=== PATIENT | female | born 1985 | race Hispanic/Latino ===

== ENCOUNTER 2018-07-03 16:16 | Observation (INO) | payer BC ==
[~2018-07-03] VITALS: Ht 160 cm; Wt 90.7 kg
[2018-07-03 16:40] LABS: BASOPHILS % 0.3 % (0.0-1.0); EOSINOPHILS # (AUTO) 0.1 (0.0-0.4); EOSINOPHILS % 1.6 % (0.0-6.0); HEMATOCRIT 39.8 % (34.2-44.1); HEMOGLOBIN 13.3 g/dL (12.0-16.0); LYMPHOCYTES # (AUTO) 3.3 (1.0-3.2); LYMPHOCYTES % 42.4 % (18.0-39.1); MEAN CORPUSCULAR HEMOGLOBIN 27.8 pg (28-32); MEAN CORPUSCULAR HGB CONC 33.4 g/dL (31-35); MEAN CORPUSCULAR VOLUME 83.3 fL (81-99); MONOCYTES # (AUTO) 0.7 (0.2-0.8); MONOCYTES % 9.2 % (4.4-11.3); NEUTROPHILS # (AUTO) 3.6 (2.1-6.9); NEUTROPHILS % 46.2 % (38.7-80.0); PLATELET COUNT 280 x10e3/uL (140-360); RED BLOOD COUNT 4.78 x10e6/uL (3.6-5.1); RED CELL DISTRIBUTION WIDTH 12.9 % (11.7-14.4)
[2018-07-03 16:58] LABS: ALANINE AMINOTRANSFERASE 28 IU/L (0-55); ALBUMIN 3.6 g/dL (3.5-5.0); ALKALINE PHOSPHATASE 89 IU/L (40-150); ANION GAP 11.9 mmol/L (8-16); BLOOD UREA NITROGEN 10 mg/dL (7-26); BUN/CREATININE RATIO 14 (6-25); CALCIUM 9.2 mg/dL (8.4-10.2); CARBON DIOXIDE 24 mmol/L (22-29); CHLORIDE 106 mmol/L (98-107); CREATININE, SERUM 0.72 mg/dL (0.57-1.11); EST GLOMERULAR FILTRATION RATE > 60 ML/MIN (60-); GLUCOSE 108 mg/dL (74-118); POTASSIUM 3.9 mmol/L (3.5-5.1); SODIUM 138 mmol/L (136-145)
[2018-07-03 17:04] LABS: HCG,QUANTITATIVE < 1.20 mIU/mL (0-10)
[2018-07-03] MEDS ORDERED: FAMOTIDINE 20 MG TAB PO ONE (17:30)
[2018-07-03] MEDS ORDERED: DEXAMETHASONE SOD PHOS 10 MG/1 ML VIAL INJ ONE (17:30)
--- NOTE | 2018-07-03 18:17 | Diagnostic Imaging Report ---
PROCEDURE:TRANSVAGINAL ULTRASOUND COMPARISON:None. INDICATIONS:PELVIC PAIN TECHNIQUE: Grayscale transverse and sagittal transabdominal and transvaginal images were obtained of the pelvis. Transvaginal imaging was medically necessary to better visualize the endometrium and ovaries. FINDINGS: UTERUS: The uterus is anteverted and measures 8.5 x 5.1 x 6.2 cm. There are multiple nabothian cysts seen in the cervix, measuring up to 1.5 cm. No uterine masses. ENDOMETRIUM: The endometrium is thickened, measuring up to 1.7 cm. There is a homogenous echotexture without focal thickening. RIGHT OVARY: The right ovary measures 3.5 x 2.0 x 2.5 cm. There is a mildly complex cyst in the right ovary which measures 1.7 x 1.6 x 1.3 cm. LEFT OVARY: The left ovary measures 4.7 x 1.8 x 2.2 cm. No solid or cystic lesions are present in the left ovary. There is a small amount of free fluid within the pelvis. No adnexal masses. Normal vascularity is seen in the right ovary on spectral Doppler images. Due to technical limitations, limited vascularity was seen in the left ovary, but there are otherwise no signs of left ovarian torsion. CONCLUSION: Mild thickening of the endometrial stripe which may be physiologic. Recommend followup ultrasound in 6-12 weeks to ensure resolution. Mildly complex cystic lesion in the right ovary may represent a hemorrhagic cyst. This can be assessed on followup ultrasound. Due to technical issues, limited vascularity was seen in the left ovary, but there are otherwise no signs of left ovarian torsion. Dictated by: Ivan Fatima M.D. on 07/03/2018 at 18:23 Electronically approved by: Ivan Fatima M.D. on 07/03/2018 at 18:23
--- NOTE | 2018-07-03 18:18 | Diagnostic Imaging Report ---
PROCEDURE:PELVIC DOPPLER US COMPARISON:None. INDICATIONS:PELVIC PAIN CONCLUSION: Please refer to separate dictation for transvaginal ultrasound (accession #[id number]) performed at the same date and time for full dictated report. Dictated by: Ivan Fatima M.D. on 07/03/2018 at 18:24 Electronically approved by: Ivan Fatima M.D. on 07/03/2018 at 18:24
[2018-07-03] MEDS ORDERED: MORPHINE SULFATE INJ 4 MG/ML INJ IV PRN (18:45)
[2018-07-03] MEDS ORDERED: MORPHINE SULFATE 2 MG/ML SYR IV PRN (18:45)
--- NOTE | 2018-07-03 19:05 | Diagnostic Imaging Report ---
PROCEDURE: CT ABDOMEN AND PELVIS WITH CONTRAST TECHNIQUE: The abdomen and pelvis were scanned utilizing a multidetector helical scanner from the diaphragm to the lesser trochanter after the IV administration of 100 cc of Isovue 370 and the oral administration of water. Coronal and sagittal multiplanar reformations were obtained. COMPARISON: None. INDICATIONS: LOWER ABDOMINAL PAIN DUE TO OVARIAN CYST FINDINGS: LOWER THORAX: Normal. HEPATOBILIARY: Diffuse hepatic steatosis. No focal hepatic lesions. There has been a cholecystectomy. Mild pneumobilia. SPLEEN: No splenomegaly. PANCREAS: No focal masses or ductal dilatation. ADRENALS: No adrenal nodules. KIDNEYS/URETERS: No hydronephrosis, stones, or solid mass lesions. PELVIC ORGANS/BLADDER: Cystic lesion in the right ovary was also seen on recent ultrasound. The bladder appears unremarkable. PERITONEUM / RETROPERITONEUM: No free air or fluid. LYMPH NODES: No lymphadenopathy. VESSELS: Unremarkable. GI TRACT: No distention or wall thickening. There are scattered sigmoid diverticula without evidence of acute inflammation. The appendix is normal. BONES AND SOFT TISSUES: Very small, fat-containing umbilical hernia. IMPRESSION: 1. Right ovarian cyst, better evaluated on same day pelvic ultrasound. 2. No other findings to explain the patient's symptoms. 3. Cholecystectomy. Pneumobilia may be related to prior biliary instrumentation or history of sphincterotomy. Correlate with history. Dictated by: Ivan Fatima M.D. on 07/03/2018 at 19:11 Electronically approved by: Ivan Fatima M.D. on 07/03/2018 at 19:11
[2018-07-03 19:11] LABS: BILIRUBIN,URINE NEGATIVE (NEGATIVE); CLARITY,URINE CLEAR (CLEAR); COLOR,URINE YELLOW (YELLOW); KETONES,URINE NEGATIVE (NEGATIVE); LEUKOCYTE ESTERASE ,URINE NEGATIVE (NEGATIVE); NITRITE,URINE NEGATIVE (NEGATIVE); PROTEIN,URINE DIPSTICK NEGATIVE (NEGATIVE); URINE UROBILINOGEN 1 mg/dL (0.2 - 1)
[2018-07-03] MEDS: ONDANSETRON HCL INJ 2 MG/ML VIAL IV PRN (19:18)
[2018-07-03 19:19] LABS: BACTERIA,URINE MANY /HPF; EPITHELIAL CELLS,URINE FEW /LPF; MUCUS,URINE FEW (RARE)
[2018-07-03 20:40] VITALS: BP 112/71
[2018-07-03 20:43] VITALS: BP 112/71
[2018-07-03] MEDS ORDERED: ACETAMINOPHEN 325 MG TAB PO PRN (21:15)
[2018-07-03] MEDS: OXYCODONE/ACETAMINOPHEN 5-325 1 EACH TABLET PO PRN (21:32)
[2018-07-03] MEDS ORDERED: SODIUM CHLORIDE 0.9% 50ML 50 ML ONE (22:33)
[2018-07-03] MEDS ORDERED: IOPAMIDOL 370 MG/ML 200 ML INFUS..BTL INJ ONE (22:34)
[2018-07-04] VITALS (9 sets, daily range): BP systolic 95–117; BP diastolic 52–68
[2018-07-04] MEDS: OXYCODONE/ACETAMINOPHEN 5-325 1 EACH TABLET PO PRN ×5 (01:30→21:28)
[2018-07-04] MEDS ORDERED: CITRATE OF MAGNESIA 300ML BOTTLE PO ONE (10:45)
--- NOTE | 2018-07-04 12:06 | Diagnostic Imaging Report ---
EXAM: Limited Pelvic Doppler Ultrasound INDICATION: \S\LEFT OVARIAN BLOOD FLOW COMPARISON: Transvaginal ultrasound 07/03/2018 TECHNIQUE: Grayscale transverse and sagittal transvaginal images with color Doppler were obtained of the ovaries. CLINICAL HISTORY: Check ovarian flow FINDINGS: Right ovary: 4.3 x 3.1 x 3.4 cm. Stable 1.9 x 1.3 x 1.7 cm cystic, anechoic lesion likely representing a dominant follicle and less likely a small follicular cyst. No other focal lesions. Normal arterial and venous flow is documented in the right ovary. Left: 3.5 x 1.8 x 2.0 cm. No focal lesions. Normal arterial and venous flow is documented in the left ovary. IMPRESSION: Normal bilateral arterial and venous flow is documented in the ovaries. Low likelihood of torsion. Signed by: Dr. Tomer Marin M.D. on 07/04/2018 12:02 PM
[2018-07-04] MEDS: ONDANSETRON HCL INJ 2 MG/ML VIAL IV PRN (13:35)
--- NOTE | 2018-07-04 23:05 | Consultation ---
DATE OF CONSULTATION: July 04, 2018 GYNECOLOGIC CONSULTATION REASON FOR CONSULTATION: The patient is a 32-year-old 6, para 3-0-3-3, with last menstrual period at the end of May 2018, on no contraception, with previous menstrual period in February 2018, history of irregular periods, who was admitted to the hospital with abdominal pain. The pain was on the left side, worsening over approximately 4 days with back and left lower quadrant pain. She denies any urinary symptoms or nausea, vomiting or diarrhea, but her last bowel movement was 3 days ago. She was seen in the urgent care center, was admitted to [facility]. She was seen by several doctors but was awaiting gynecology consult and left against medical advice because the slide fasteners inspector did not come after 48 hours. The patient states the pain has made it difficult for her to work. PAST MEDICAL HISTORY: Remarkable for asthma, anxiety, depression, gastritis, diverticulosis and migraines. PAST SURGICAL HISTORY: Remarkable for 2 C-sections and a laparoscopic cholecystectomy in 2001, a D\T\C in 2002, and she had a sphincterotomy presumed in December of 2017. 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 She says the surgery was done by Dr. Linda. I strongly recommended her to call Dr. Linda's office and to get a pathology report to make sure that this neoplasm was not a worrisome tumor. MEDICATIONS: The patient is on no meds at home, but she has been getting medication for pain. At [place] she was given Percocet and morphine. ALLERGIES: ONLY FOR TORADOL, FROM WHICH SHE GETS HIVES. SHE HAS BEEN ABLE TO TOLERATE MOTRIN WITHOUT PROBLEMS. OB HISTORY: Remarkable for 1 normal spontaneous vaginal delivery followed by 2 C-sections. FAMILY HISTORY: Remarkable for the paternal grandmother with ovarian cancer at age 62, maternal grandfather with lung cancer and maternal grandmother from diabetes and paternal grandfather with lung cancer. Both her grandfather's were smokers. 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 She is a nonsmoker, denies alcohol or IV drug abuse. REVIEW OF SYSTEMS: Remarkable only for the abdominal pain. PHYSICAL EXAMINATION VITAL SIGNS: Patient's temperature is 97.9, pulse 70, respirations 18, blood pressure 101/55. LUNGS: Clear. CARDIOVASCULAR: There is regular rate and rhythm. ABDOMEN: There are normal bowel sounds, mild to moderate left lower quadrant tenderness, no rebound. PELVIC: Vulva within normal limits. Vagina normal rugation. Cervix is parous without lesions. Uterus is 6 week size, anteverted, with no cervical motion tenderness. There was mild to moderate uterine tenderness. Adnexa: Right nontender, no masses, left was mild to moderately tender with no palpable masses. Ultrasound revealed uterus measuring 8.5 x 6.2 x 5.1 cm with nabothian cysts. There were no uterine masses. The right ovary contained a 1.7 x 1.6 x 1.3 cm cyst, and the entire right ovary measured 3.5 x 2.5 x 2.0 cm. The cyst was mildly complex, suggestive of a hemorrhagic cyst. The left ovary was 4.7 x 2.2 x 1.8 cm. There were no cysts or masses in the left ovary. There was a small amount of free fluid within the pelvis. No adnexal masses. Normal vascularity was seen in the right ovary. Due to technical limitations, limited vascularity was seen in the left ovary, but there were no signs of torsion otherwise. There was also some mild thickening of the endometrial stripe which may be physiologic in view of the patient's last period being a month ago and with the endometrium being 1.7 cm thick with homogeneous echo texture. A CT revealed a right ovarian cyst, normal appendix, fatty liver and diverticulosis without any signs of inflammation or infection. Laboratory values: White count 7.2, hemoglobin 13.3, hematocrit 39.8, platelets 280,000. Sodium 138, potassium 3.9, glucose 108, creatinine 0.72. hCG was negative. Liver functions were normal. Urinalysis was negative. IMPRESSION: Left lower quadrant pain which could be due to ruptured ovarian cyst, just as likely could be from diverticulosis or maybe from constipation due to the narcotics that the patient has received in the last couple of days. Also, the patient had likely sphincterotomy for retained stone 6 months ago, but pathology report is needed because the patient recalls neoplasm of the bile duct being removed. PLAN: I have discussed the case with Dr. Haynes. I recommend that, in view of her normal ultrasound, a ruptured cyst is possible in the differential diagnosis but constipation from narcotics on top of diverticulosis could also be her problem. It is also possible that adhesions are contributing to her pain. After discussions with Dr. Haynes, he has agreed to get a GI consult. He has also ordered medication to cause her to have a bowel movement, and we will observe to see if this helps relieve her pain. Thank you very much for the consult. Job#: [id number] EV
--- NOTE | 2018-07-05 00:36 | Consultation ---
DATE OF CONSULTATION: GASTROENTEROLOGY CONSULTATION REASON FOR CONSULTATION: Abdominal pain. HISTORY OF PRESENT ILLNESS: The patient is a very pleasant 52-year-old woman who comes in with lower abdominal pain. It is primarily in the pelvic region. It is associated with constipation. She has also taken magnesium citrate, defecated and feels better. She does have ovarian cyst which is under evaluation. Aside from the constipation which may be related to narcotics, she has no other bowel changes. She had a smear of blood on the toilet paper a couple of days ago, however, no further bleeding. There is no blood mixed in her stool. She has had no melena. She has no upper abdominal pain. She has not been losing weight. Otherwise, no fever, chills or sweats. PAST MEDICAL HISTORY: REVIEWED MEDICATIONS AND ALLERGIES: REVIEWED. PLEASE SEE MAR MEDICATION RECONCILIATION FORM. SOCIAL HISTORY: Denies alcohol, tobacco or illicit substance use. She has good family support. FAMILY HISTORY: Reviewed, noncontributory. REVIEW OF SYSTEMS: Ten-system review is positive for that mentioned in HPI, otherwise unremarkable. PHYSICAL EXAMINATION GENERAL: She is pleasant, alert, oriented, no acute distress. HEENT: Pupils equal, round reactive to light. NECK: Supple. LUNGS: Clear. CARDIOVASCULAR: S1 and S2. ABDOMEN: Soft. She is tender in the lower abdomen. No rebound, guarding or mass. EXTREMITIES: No clubbing, cyanosis or edema. PSYCH: Calm and cooperative. NEUROLOGIC: Nonfocal. HEME/ONC: No bruising or adenopathy. The electronic health records reviewed for laboratory and radiologic studies as well as history. Additionally, I reviewed her outpatient charts from [facility] with Dr. Linda. ASSESSMENT 1. Lower abdominal pain. Likely related to constipation and ovarian cystic. I think it is unlikely that she has diverticulitis. She does have a history diverticulosis and should follow a low balance diet which is high fiber and adequate hydration. She can take Colace and MiraLAX for constipation. She will follow up with Dr. Linda for outpatient colonoscopy. 2. Pneumobilia: She has a history of choledocholithiasis. Records from [facility] including the magnetic resonance cholangiopancreatography and endoscopic retrograde cholangiopancreatography are noted. The magnetic resonance cholangiopancreatography noted a distal common bile duct filling defect, stone versus neoplasm. Endoscopic retrograde cholangiopancreatography confirmed stone. There was no concern at that time for any neoplastic process and no brushing for biopsies were taken as the stone was removed and resultant imaging revealed no further filling defect after stone removal. I do not anticipate any future biliary problems for her. Thank you very much for asking me to see Ms. Villaseñor. Any questions or concerns, please do not hesitate to contact me. Job#: [id number]
[2018-07-05 05:00] VITALS: BP 100/50
[2018-07-05] MEDS: OXYCODONE/ACETAMINOPHEN 5-325 1 EACH TABLET PO PRN (05:58)
[2018-07-05 08:04] VITALS: BP 115/58
[2018-07-05] MEDS ORDERED: LIDOCAINE 5% PATCH TP SCH (09:00)
[2018-07-05] MEDS ORDERED: IBUPROFEN 400 MG TAB PO STA (09:34)
[2018-07-05] MEDS ORDERED: ACETAMINOPHEN 325 MG TAB PO NR (10:00)
--- NOTE | 2018-07-05 15:10 | Discharge Summary ---
PRIMARY CARE PHYSICIAN: Dr. Brianna Lombardo. FINAL DIAGNOSIS: Abdominal pain of unclear etiology. SECONDARY DIAGNOSES 1. Ovarian cyst on the right. 2. Diverticulosis. 3. Constipation. 4. Previous retained common bile duct stone, status post sphincterotomy about 6 months ago. 5. A very small fat-containing umbilical hernia. CONSULTANTS: 1. Dr. Guo, GI. 2. Dr. Woo, VICE PRESIDENT SALES. PROCEDURES/STUDIES PERFORMED: CT of the abdomen and pelvis and pelvic ultrasound. HISTORY: Per H\T\P. HOSPITAL COURSE: After magnesium citrate and having a bowel movement her pain got better, but not completely resolved. At this time, etiology is unclear. Potentially, there could be a component of inflammatory bowel given presence of diverticulosis at a young age. We are also entertaining polycystic ovarian syndrome as well. She also has what appears to be left back musculoskeletal pain, which is helped by Lidocaine patch. At this time, the patient is stable for discharge. She will follow up with Dr. Linda, her GI doctor, for colonoscopy and also Dr. Woo. The patient was seen and examined today. CONDITION ON DISCHARGE: Stable. DISCHARGE MEDICATIONS: Please see medication reconciliation form. RADHA CURRY M.D. Job#: [id number] GH cc:BRIANNA LOMBARDO MD
== END 2018-07-05 11:02 | disposition home or self-care (01) ==
LOC: ER 16:16 → ERHOLD 19:49 → IMCU 20:20
PROVIDERS: ADMIT Internal Medicine; ATTEND Internal Medicine
DX: R10.2 Pelvic and perineal pain (principal); N83.201 Unspecified ovarian cyst, right side; K57.30 Diverticulosis of large intestine without perforation or abscess without bleeding; K59.00 Constipation, unspecified; K42.9 Umbilical hernia without obstruction or gangrene; K83.8 Other specified diseases of biliary tract; M54.9 Dorsalgia, unspecified
CPT/HCPCS: 36415; 74177; 76830; 80053; 81001; 83036; 84702; 85025; 93976 ×2; 99284; G0378 ×3; J2270; J2405 ×2; Q9967

== ENCOUNTER 2018-08-19 05:11 | Observation (INO) | payer BC ==
[2018-08-16 14:30] LABS: BASOPHILS % 0.3 % (0.0-1.0); EOSINOPHILS # (AUTO) 0.1 (0.0-0.4); EOSINOPHILS % 1.6 % (0.0-6.0); HEMATOCRIT 40.8 % (34.2-44.1); HEMOGLOBIN 13.2 g/dL (12.0-16.0); LYMPHOCYTES # (AUTO) 3.5 (1.0-3.2); LYMPHOCYTES % 45.4 % (18.0-39.1); MEAN CORPUSCULAR HEMOGLOBIN 27.4 pg (28-32); MEAN CORPUSCULAR HGB CONC 32.4 g/dL (31-35); MEAN CORPUSCULAR VOLUME 84.6 fL (81-99); MONOCYTES # (AUTO) 0.7 (0.2-0.8); MONOCYTES % 8.4 % (4.4-11.3); NEUTROPHILS # (AUTO) 3.4 (2.1-6.9); PLATELET COUNT 308 x10e3/uL (140-360); RED BLOOD COUNT 4.82 x10e6/uL (3.6-5.1); RED CELL DISTRIBUTION WIDTH 12.5 % (11.7-14.4)
[2018-08-16 15:11] LABS: ALANINE AMINOTRANSFERASE 28 IU/L (0-55); ALBUMIN 3.8 g/dL (3.5-5.0); ALKALINE PHOSPHATASE 101 IU/L (40-150); ANION GAP 14.2 mmol/L (8-16); BLOOD UREA NITROGEN 9 mg/dL (7-26); BUN/CREATININE RATIO 13 (6-25); CALCIUM 8.7 mg/dL (8.4-10.2); CARBON DIOXIDE 25 mmol/L (22-29); CHLORIDE 104 mmol/L (98-107); EST GLOMERULAR FILTRATION RATE > 60 ML/MIN (60-); GLUCOSE 87 mg/dL (74-118); POTASSIUM 4.2 mmol/L (3.5-5.1); SODIUM 139 mmol/L (136-145)
--- NOTE | 2018-08-16 15:26 | Diagnostic Imaging Report ---
EXAMINATION: CHEST 2 VIEWS INDICATION: \S\PRE OP \S\[id number] \S\1410 \S\DR ORDERS COMPARISON: None FINDINGS: PA and lateral views TUBES and LINES: None. LUNGS: Lungs are well inflated. Lungs are clear. There is no evidence of pneumonia or pulmonary edema. PLEURA: No pleural effusion or pneumothorax. HEART AND MEDIASTINUM: The cardiomediastinal silhouette is unremarkable. BONES AND SOFT TISSUES: No acute osseous lesion. Soft tissues are unremarkable. UPPER ABDOMEN: No free air under the diaphragm. Right upper quadrant cholecystectomy clips. IMPRESSION: No acute thoracic abnormality. Signed by: Dr. Shonna Chung M.D. on 08/16/2018 3:22 PM
[~2018-08-19] VITALS: Ht 160 cm; Wt 93.9 kg
[~2018-08-19 05:11] MED LIST: BUPROPION XL300 MG PO; MULTI-VITAMIN1 EACH PO; VASOPRESSIN INJ 20 UNIT/ML VIAL ONE; VYVANSE20 MG PO; XANAX0.5 MG PO
[2018-08-19] MEDS ORDERED: CEFAZOLIN SOD 2 GM/D5W 50ML 50 ML IV ONE (05:24)
[2018-08-19] MEDS ORDERED: KLONOPIN0.5 MG PO (05:34)
[2018-08-19] MEDS ORDERED: ESTROGENS CONJUGATED VAGINAL CR 45 GM TUBE PV ONE (07:27)
[2018-08-19] MEDS ORDERED: BUPIVACAINE 0.25%/EPI 30ML SDV INJ ONE (07:27)
[2018-08-19] MEDS ORDERED: DOCUSATE SODIUM 100 MG CAP PO PRN (11:15)
[2018-08-19] MEDS ORDERED: MORPHINE SULFATE 2 MG/ML SYR IM PRN (11:15)
[2018-08-19] MEDS ORDERED: BISACODYL 10 MG SUPP PR PRN (11:15)
[2018-08-19] MEDS ORDERED: MEPERIDINE HCL INJ 50 MG/ML INJ ONE (11:25)
[2018-08-19] MEDS ORDERED: FENTANYL CITRATE/PF 100MCG/2 ML INJ ONE ×2 (11:25→17:34)
[2018-08-19] MEDS ORDERED: MORPHINE SULFATE INJ 10 MG/ML IM PRN ×2 (11:45→15:45)
[2018-08-19] MEDS ORDERED: HYDROMORPHONE 2MG/ML 2 MG/ML ML ONE (11:47)
[2018-08-19 12:45] VITALS: BP 130/76
[2018-08-19 13:15] VITALS: BP 130/76
[2018-08-19 13:16] VITALS: BP 130/76
[2018-08-19 13:20] VITALS: BP 130/76
[2018-08-19] MEDS ORDERED: CEFAZOLIN SOD 1 GM/D5W 50ML 50 ML IV SCH (14:00)
--- NOTE | 2018-08-19 14:09 | Operative Report ---
DATE OF PROCEDURE: August 19, 2018 PREOPERATIVE DIAGNOSES 1. Abdominopelvic pain. 2. Dysmenorrhea. 3. Dyspareunia. 4. Failed medical therapy. POSTOPERATIVE DIAGNOSES 1. Abdominopelvic pain. 2. Dysmenorrhea. 3. Dyspareunia. 4. Failed medical therapy. 5. Adhesions of omentum to anterior abdominal wall. OPERATIONS PERFORMED 1. Laparoscopically assisted vaginal hysterectomy. 2. Bilateral salpingo-oophorectomy. 3. Lysis of adhesions. ANESTHESIA: General with Dr. Hart. INDICATIONS FOR THE OPERATION: The patient is a 33-year-old 6, para 3-0-3-3, with last menstrual period August 08, 2018, status post tubal ligation in 2012, with a 5-year history of lower abdominal pain occurring before, during and after menses. It is usually worse the week before her menses. She is now in pain for 2 straight weeks. She has tried oral contraceptives without any relief of her pain. She requests hysterectomy and bilateral salpingo-oophorectomy. She understands it may not relieve her pain. She also understands the risk for menopause of removing her ovaries, but she does not want to undergo repeated procedures. She is therefore taken to the operating room at this time for LAVH and BSO. FINDINGS AT SURGERY: There was an enlarged uterus 8 week size which was mostly mobile. There were adhesions of omentum to anterior abdominal wall. Tubes were status post tubal ligation. The ovaries were within normal limits. There were adhesions of the bladder to the uterus at the site of her , which were easily lysed, and the massive adhesions of omentum to anterior abdominal wall were lysed before the hysterectomy could be done. PROCEDURE: The patient was taken to the operating room and placed on the table in the supine position. General anesthesia was administered. The patient was placed in the lithotomy position. The perineum was prepared and draped in the usual sterile manner as was the abdomen. Pelvic exam revealed a 6 to 8 week sized, anteverted uterus, mostly mobile, with no adnexal masses. A Mayorga catheter was placed in the bladder for constant drainage. A weighted speculum was placed in the posterior vaginal wall, and then with the aid of a right-angle retractor, the anterior lip of the cervix was grasped with a single-toothed tenaculum. Then a VCare uterine manipulator was put into the endocervical canal after dilation with Castro dilators, and the balloon was blown up to 8 mL of air, and at this point the print machine operator changed gloves and we proceeded with laparoscopy. A small incision was made just inferior to the umbilicus in the midline. The Veress needle was inserted through the incision into the peritoneal cavity. A pneumoperitoneum was created by insufflation of 4 liters of carbon dioxide gas under a filling pressure of 8 to 10 mmHg. The Veress needle was removed, and the trocar was inserted through the incision into the peritoneal cavity. The laparoscope was placed with confirmation that the peritoneal cavity had been entered. A second trocar was placed in the left lower quadrant under direct visualization by laparoscopy, and a third trocar was placed in the right lower quadrant under direct visualization by laparoscopy. Findings were adhesions of omentum to the anterior abdominal wall. Dr. Oj Gaitan was called in for a consultation. He did not scrub in, but he just recommended lysing the adhesions and that there was no intervening bowel. So, the LigaSure was then placed over the adhesions right next to the anterior abdominal wall, and these adhesions were coagulated and cut in sequence until the entire omentum was free of the anterior abdominal wall. Once this was done, we inspected the uterus. It was enlarged to about 8 week size. There were adhesions of bladder to the uterus at the site of previous , but these did not seem to be dense. The tubes were status post tubal ligation. The ovaries were in general normal appearance. There was also a question of adhesions of bowel to the left lateral side wall. Dr. Gaitan stated that these adhesions were normal finding on most cases, that there are typical adhesions of the bowel to that left side. At this point attention was turned to the right infundibulopelvic ligament. It was grasped with the LigaSure, clamped, coagulated and cut. There was good hemostasis in evidence of the ovarian vessels, and this clamping took place as close to the ovary as possible. Then the mesosalpinx was clamped, coagulated and cut, and then the round ligament was coagulated and cut and then the broad ligament was clamped and cut using the LigaSure instrument, coming all the way clamping and cutting down to just above the uterine vessels. Then the anterior peritoneum was opened from round ligament to the round ligament on the other side using blunt dissection, and then attention was turned to the left adnexa. The left tube was grasped, and the infundibulopelvic ligament was identified. The LigaSure was placed over this, coagulating and cutting. There was good hemostasis in evidence of the ovarian vessels. Then the round ligament on the left side was clamped with the LigaSure, coagulated and cut, and then the mesosalpinx on the left was coagulated and cut and then the broad ligament on the left side was coagulated and cut down to the level of the uterine vessels, and the anterior peritoneum was completely opened on the left side as well. At this point a small amount of dissection was made of the bladder away from the uterus, and with good hemostasis in evidence we decided to proceed with the vaginal portion of the procedure. The pneumoperitoneum was removed. The patient was placed in lithotomy position, and we proceeded with the vaginal portion of the procedure. The VCare was removed, and then the uterus was grasped with 2 single-toothed tenacula. Then the dilute Pitressin was injected around the cervix, and then the cervix was circumscribed with a knife and the endopelvic fascia was advanced anteriorly, posteriorly and laterally. The uterosacral ligaments on each side were clamped, cut and tied off with 0 Vicryl suture and tagged for later identification. Then we opened posteriorly, identifying the posterior peritoneum, opening it and noting that the peritoneal cavity had been entered and then the cardinal ligament on each side was clamped, cut and tied off with 0 Vicryl suture. At this point the anterior peritoneum was advanced using sharp dissection. We then saw that we were into the peritoneal cavity, and a retractor was placed anteriorly into the peritoneal cavity and then, clamping from anterior to posterior peritoneum, the uterine vessels were clamped, cut and tied off with 0 Vicryl suture. Then the broad ligament on each side was clamped, cut and tied off once further, and then the uterus was brought out relatively easily. There was 1 small adhesion, which was clamped, cut and tied off with 0 Vicryl suture. At this point the uterus was removed with the tubes and ovaries and sent to pathology for definitive diagnosis, and we examined for any bleeders. There were no bleeders found except for on the cuff. The uterosacral ligaments were then tied to the cuff for support with a free needle, and then the vaginal cuff was closed using a running lock stitch of 1 chromic suture. There was good hemostasis in evidence in the vagina. We irrigated and suctioned. The Mayorga catheter was draining clear urine. The print machine operator changed gown and gloves, and the pneumoperitoneum was reinsufflated and then we inspected and found no evidence of bleeding. There were a few adhesions on the anterior abdominal wall which were coagulated and cut and removed, and we irrigated and suctioned and inspected and found no evidence of bleeding and proceeded to close. All the air and instruments were removed from the abdomen. The skin incisions were closed with inverted stitches of 4-0 Monocryl suture. The Mayorga catheter was draining clear urine at the end of the procedure with good output noted. There were no complications noted. Estimated blood loss was 150 mL. The patient tolerated the procedure well and was transferred from the operating room to the recovery room in stable condition. Job#: [id number] EV
[2018-08-19] MEDS: ONDANSETRON HCL INJ 2 MG/ML VIAL IV PRN ×2 (15:03→22:23)
[2018-08-19] MEDS: LACTATED RINGER'S 1,000 ML IV SCH ×2 (15:03→18:10)
[2018-08-19] MEDS: CEFAZOLIN SOD 1 GM VIAL IV SCH ×2 (15:03→20:45)
[2018-08-19] MEDS: IBUPROFEN 600 MG TAB PO PRN (16:19)
[2018-08-19] MEDS ORDERED: HYDROMORPHONE 1MG/1ML INJ IV PRN (17:00)
[2018-08-19] MEDS: SIMETHICONE 80 MG CHEW PO PRN ×2 (17:08→20:45)
[2018-08-19] MEDS ORDERED: HYDROMORPHONE 2MG/ML 2 MG/ML ML IV PRN (17:15)
[2018-08-19] MEDS ORDERED: ONDANSETRON HCL INJ 2 MG/ML VIAL ONE (17:22)
[2018-08-19] MEDS ORDERED: PROPOFOL IV EMULSION 10 MG/ML 20 ML VIAL ONE (17:22)
[2018-08-19] MEDS ORDERED: DEXAMETHASONE SOD PHOS INJ 4 MG/ML VIAL ONE (17:22)
[2018-08-19] MEDS ORDERED: LIDOCAINE HCL 2% LOCAL INJ 5 ML SDV VIAL INJ ONE (17:22)
[2018-08-19] MEDS ORDERED: ACETAMINOPHEN 1000 MG/100 ML IV ONE (17:22)
[2018-08-19] MEDS ORDERED: SEVOFLURANE INHAL SOLN 250 ML PEN BTL ONE (17:22)
[2018-08-19] MEDS ORDERED: ROCURONIUM BROMIDE 10 MG/ML 5ML VIAL ONE (17:22)
[2018-08-19] MEDS ORDERED: MIDAZOLAM HCL 2 MG/2 ML VIAL ONE (17:34)
[2018-08-19] MEDS ORDERED: MORPHINE SULFATE INJ 10 MG/ML ONE (17:34)
[2018-08-19] MEDS: HYDROMORPHONE 2MG/ML 2 MG/ML ML IV PRN ×2 (18:10→20:45)
[2018-08-19 20:00] VITALS: BP 132/83
[2018-08-19] MEDS ORDERED: SODIUM CHLORIDE 0.9% 1000ML 1,000 ML ONE (21:10)
[2018-08-19] MEDS ORDERED: DIPHENHYDRAMINE HCL INJ 50 MG/ML VIAL IV PRN (22:30)
[2018-08-20] VITALS: BP 117/65
[2018-08-20] MEDS: ONDANSETRON HCL INJ 2 MG/ML VIAL IV PRN ×2 (00:22→15:00)
[2018-08-20] MEDS: HYDROMORPHONE 2MG/ML 2 MG/ML ML IV PRN ×4 (00:22→16:48)
[2018-08-20] MEDS: LACTATED RINGER'S 1,000 ML IV SCH ×4 (00:31→16:10)
[2018-08-20] MEDS: SIMETHICONE 80 MG CHEW PO PRN (00:31)
[2018-08-20] MEDS ORDERED: SIMETHICONE 80 MG CHEW PO PRN (00:45)
[2018-08-20 04:35] VITALS: BP 108/60
[2018-08-20] MEDS: CEFAZOLIN SOD 1 GM VIAL IV SCH (05:18)
[2018-08-20 05:29] LABS: BASOPHILS % 0.2 % (0.0-1.0); EOSINOPHILS % 0.1 % (0.0-6.0); HEMATOCRIT 32.2 % (34.2-44.1); HEMOGLOBIN 10.6 g/dL (12.0-16.0); LYMPHOCYTES # (AUTO) 3.2 (1.0-3.2); LYMPHOCYTES % 29.4 % (18.0-39.1); MEAN CORPUSCULAR HEMOGLOBIN 27.7 pg (28-32); MEAN CORPUSCULAR HGB CONC 32.9 g/dL (31-35); MEAN CORPUSCULAR VOLUME 84.1 fL (81-99); MONOCYTES % 9.2 % (4.4-11.3); NEUTROPHILS # (AUTO) 6.7 (2.1-6.9); NEUTROPHILS % 60.7 % (38.7-80.0); PLATELET COUNT 258 x10e3/uL (140-360); RED BLOOD COUNT 3.83 x10e6/uL (3.6-5.1); RED CELL DISTRIBUTION WIDTH 12.6 % (11.7-14.4)
[2018-08-20 06:06] LABS: ANION GAP 12.4 mmol/L (8-16); BLOOD UREA NITROGEN 5 mg/dL (7-26); BUN/CREATININE RATIO 8 (6-25); CALCIUM 8.3 mg/dL (8.4-10.2); CARBON DIOXIDE 27 mmol/L (22-29); CHLORIDE 103 mmol/L (98-107); CREATININE, SERUM 0.64 mg/dL (0.57-1.11); EST GLOMERULAR FILTRATION RATE > 60 ML/MIN (60-); GLUCOSE 105 mg/dL (74-118); POTASSIUM 3.4 mmol/L (3.5-5.1); SODIUM 139 mmol/L (136-145)
[2018-08-20 08:42] VITALS: BP 115/58
[2018-08-20] MEDS ORDERED: BUPROPION HCL 150 MG TABCR PO SCH (09:00)
[2018-08-20] MEDS ORDERED: LISDEXAMFETAMINE DIMESYLATE 10 MG PO SCH (09:00)
[2018-08-20] MEDS ORDERED: NON-FORMULARY MEDICATION (Bupropion Hcl (Bupropion Xl) 300 MG) PO SCH (09:00)
[2018-08-20] MEDS ORDERED: D5.45%NS/KCL 20MEQ 1,000 ML IV ONE (09:15)
[2018-08-20] MEDS ORDERED: POTASSIUM CHLORIDE 10MEQ EA PO NR (09:45)
[2018-08-20 10:57] VITALS: BP 115/58
[2018-08-20] MEDS: ALBUTEROL/IPRATROPIUM 3 ML NEB NEB PRN ×2 (11:00→16:52)
[2018-08-20 12:26] VITALS: BP 109/59
[2018-08-20] MEDS: IBUPROFEN 600 MG TAB PO PRN (13:23)
--- OUTSIDE RECORDS SUMMARY | 2018-08-20 14:11 | XMS REPORT ---
Author Author [facility] Address Unknown Phone Unavailable Care Team Providers Care C Consultant Name Role Phone ZAIRE DUMONT Unavailable Unavailable Leatha CURRY Unavailable Unavailable Payers Payer Name Policy Type Policy Number Effective Date Expiration Date Problems This patient has no known problems. Allergies, Adverse Reactions, Alerts Allergy Name Allergy Type Status Severity Reaction(s) Onset Date Inactive Date Treating Clinician Comments ketorolac DA Active SV 2018-07-02 00:00:00 Medications This patient has no known medications. Results Test Description Test Time Test Comments Text Results Atomic Results Result Comments CHEST 2 VIEWS 2018-08-16 15:22:00 [place] [address] Patient Name: WILLIE SULLIVAN MR #: [id number] : 1985 Age/Sex: 33/F Req #: [id number] Adm Physician: Ordered by: ZAIRE DUMONT MD Report #: [id number] Location: OR Room/Bed: Procedure: [id number] DX/CHEST 2 VIEWS Exam Date: 08/16/18 Exam Time: 1410 REPORT STATUS: Signed EXAMINATION: CHEST 2 VIEWS INDICATION: COMPARISON: None FINDINGS: PA and lateral views TUBES and LINES: None. LUNGS: Lungs are well inflated. Lungs are clear. There is no evidence of pneumonia or pulmonary edema. PLEURA: No pleural effusion or pneumothorax. HEART AND MEDIASTINUM: The cardiomediastinal silhouette is unremarkable. BONES AND SOFT TISSUES: No acute osseous lesion. Soft tissues are unremarkable. UPPER ABDOMEN: No free air under the diaphragm. Right upper quadrant cholecystectomy clips. IMPRESSION: No acute thoracic abnormality. Signed by: Dr. Alejandro Limon M.D. on 08/16/2018 3:22 PM Dictated By: ALEJANDRO LIMON MD 21 Transcribed By: ELMER on 08/16/181521 COPY TO: ZAIRE DUMONT MD US PELVIC DOPPLER LTD 2018-07-04 11:57:00 [place] [address] Patient Name: WILLIE SULLIVAN MR #: [id number] : 1985 Age/Sex: 32/F Req #: [id number] Adm Physician: RADHA CURRY MD Ordered by: RADHA CURRY MD Report #: [id number] Location: [facility] Room/Bed: [place] [address] Procedure: [id number] US/US PELVIC DOPPLER LTD Exam Date: Exam Time: REPORT STATUS: Signed EXAM: Limited Pelvic Doppler Ultrasound INDICATION: COMPARISON: Transvaginal ultrasound 07/03/2018 TECHNIQUE: Grayscale transverse and sagittal transvaginal images with color Doppler were obtained of the ovaries. CLINICAL HISTORY: Check ovarian flow FINDINGS: Right ovary: 4.3 x 3.1 x 3.4 cm. Stable 1.9 x 1.3 x 1.7 cm cystic, anechoic lesion likely representing a dominant follicle and less likely a small follicular cyst. No other focal lesions. Normal arterial and venous flow is documented in the right ovary. Left: 3.5 x 1.8 x 2.0 cm. No focal lesions. Normal arterial and venous flow is documented in the left ovary. IMPRESSION: Normal bilateral arterial and venous flow is documented in the ovaries. Low likelihood of torsion. Signed by: Dr. rBiana Marin M.D. on 07/04/2018 12:02 PM Dictated By: BRIANA MARIN MD 120 Transcribed By: ELMER on 07/04/18 120 COPY TO: RADHA CURRY MD CT ABDOMEN/PELVIS W 2018-07-03 19:11:00 [place] [address] Patient Name: WILLIE SULLIVAN MR #: [id number] : 1985 Age/Sex: 32/F Req #: [id number] Adm Physician: Ordered by: OSMEL ROTHMAN MD Report #: [id number] Location: ER Room/Bed: Procedure: [id number] CT/CT ABDOMEN/PELVIS W Exam Date: 07/03/18 Exam Time: 1830 REPORT STATUS: Signed PROCEDURE: CT ABDOMEN AND PELVIS WITH CONTRAST TECHNIQUE: The abdomen and pelvis were scanned utilizing a multidetector helical scanner from the diaphragm to the lesser trochanter after the IV administration of 100 cc of Isovue 370 and the oral administration of water. Coronal and sagittal multiplanar reformations were obtained. COMPARISON: None. INDICATIONS: LOWER ABDOMINAL PAIN DUE TO OVARIAN CYST FINDINGS: LOWER THORAX: Normal. HEPATOBILIARY: Diffuse hepatic steatosis. No focal hepatic lesions. There has been a cholecystectomy. Mild pneumobilia. SPLEEN: No splenomegaly. PANCREAS: No focal masses or ductal dilatation. ADRENALS: No adrenal nodules. KIDNEYS/URETERS: No hydronephrosis, stones, or solid mass lesions. PELVIC ORGANS/BLADDER: Cystic lesion in the right ovary was also seen on recent ultrasound. The bladder appears unremarkable. PERITONEUM / RETROPERITONEUM: No free air or fluid. LYMPH NODES: No lymphadenopathy. VESSELS: Unremarkable. GI TRACT: No distention or wall thickening. There are scattered sigmoid diverticula without evidence of acute inflammation. The appendix is normal. BONES AND SOFT TISSUES: Very small, fat-containing umbilical hernia. IMPRESSION: 1. Right ovarian cyst, better evaluated on same day pelvic ultrasound. 2. No other findings to explain the patient's symptoms. 3. Cholecystectomy. Pneumobilia may be related to prior biliary instrumentation or history of sphincterotomy. Correlate with history. Dictated by: Jace Fatima M.D. on 07/03/2018 at 19:11 Electronically approved by: Jace Fatima M.D. on 07/03/2018 at 19:11 Dictated By: JACE FATIMA MD 10 Transcribed By: HAN on 07/03/181910 COPY TO: OSMEL ROTHMAN MD PELVIC DOPPLER [facility] 2018-07-03 18:24:00 [place] [address] Patient Name: WILLIE SULLIVAN MR #: [id number] : 1985 Age/Sex: 32/F Req #: [id number] Adm Physician: Ordered by: OSMEL ROTHMAN MD Report #: [id number] Location: Room/Bed: Procedure: US/US PELVIC DOPPLER LTD Exam Date: Exam Time: REPORT STATUS: Signed PROCEDURE: PELVIC DOPPLER US COMPARISON: None. INDICATIONS: PELVIC PAIN CONCLUSION: Please refer to separate dictation for transvaginal ultrasound (accession #US [id number]) performed at the same date and time for full dictated report. Dictated by: Jace Fatima M.D. on 07/03/2018 at 18:24 Electronically approved by: Jace Fatima M.D. on 07/03/2018 at 18:24 Dictated By: JACE FATIMA MD 23 Transcribed By: HAN on 07/03/181823 COPY TO: OSMEL ROTHMAN MD US TRANSVAGINAL 2018-07-03 18:23:00 [place] [address] Patient Name: WILLIE SULLIVAN MR #: [id number] : 1985 Age/Sex: 32/F Req #: [id number] [facility] Physician: Ordered by: OSMEL ROTHMAN MD Report #: [id number] Location: ER Room/Bed: Procedure: US/US TRANSVAGINAL Exam Date: Exam Time: REPORT STATUS: Signed PROCEDURE: TRANSVAGINAL ULTRASOUND COMPARISON: None. INDICATIONS: PELVIC PAIN TECHNIQUE: Grayscale transverse and sagittal transabdominal and transvaginal images were obtained of the pelvis. Transvaginal imaging was medically necessary to better visualize the endometrium and ovaries. FINDINGS: UTERUS: The uterus is anteverted and measures 8.5 x 5.1 x 6.2 cm. There are multiple nabothian cysts seen in the cervix, measuring up to 1.5 cm. No uterine masses. ENDOMETRIUM: The endometrium is thickened, measuring up to 1.7 cm. There is a homogenous echotexture without focal thickening. RIGHT OVARY: The right ovary measures 3.5 x 2.0 x 2.5 cm. There is a mildly complex cyst in the right ovary which measures 1.7 x 1.6 x 1.3 cm. LEFT OVARY: The left ovary measures 4.7 x 1.8 x 2.2 cm. No solid or cystic lesions are present in the left ovary. There is a small amount of free fluid within the pelvis. No adnexal masses. Normal vascularity is seen in the right ovary on spectral Doppler images. Due to technical limitations, limited vascularity was seen in the left ovary, but there are otherwise no signs of left ovarian torsion. CONCLUSION: Mild thickening of the endometrial stripe which may be physiologic. Recommend followup ultrasound in 6-12 weeks to ensure resolution. Mildly complex cystic lesion in the right ovary may represent a hemorrhagic cyst. This can be assessed on followup ultrasound. Due to technical issues, limited vascularity was seen in the left ovary, but there are otherwise no signs of left ovarian torsion. Dictated by: Jace Fatima M.D. on 07/03/2018 at 18:23 Electronically approved by: Jace Fatima M.D. on 07/03/2018 at 18:23 Dictated By: JACE FATIMA MD 182 Transcribed By: HAN on 07/03/181822 COPY TO: OSMEL ROTHMAN MD
[2018-08-20 16:00] VITALS: BP 108/58
[2018-08-20] MEDS ORDERED: Ibuprofen PO (19:00)
[2018-08-20] MEDS ORDERED: ESTRADIOL1 MG PO (19:00)
[2018-08-20] MEDS ORDERED: ZOFRAN ODT4 MG SL (19:00)
[2018-08-20] MEDS ORDERED: NORCO 7.5-3251 EACH PO (19:00)
== END 2018-08-20 19:35 | disposition home or self-care (01) ==
LOC: OR 05:11 → PACU V 11:22 → IMCU 13:03
PROVIDERS: ADMIT Obstetrics & Gynecology; ATTEND Obstetrics & Gynecology
DX: N94.6 Dysmenorrhea, unspecified (principal); N94.10 Unspecified dyspareunia; N80.0 Endometriosis of uterus; N73.6 Female pelvic peritoneal adhesions (postinfective); N72 Inflammatory disease of cervix uteri; N83.12 Corpus luteum cyst of left ovary; N83.11 Corpus luteum cyst of right ovary; N83.292 Other ovarian cyst, left side; N83.291 Other ovarian cyst, right side; Q50.5 Embryonic cyst of broad ligament; Z28.21 Immunization not carried out because of patient refusal; E87.6 Hypokalemia; J45.909 Unspecified asthma, uncomplicated; K29.70 Gastritis, unspecified, without bleeding; K57.90 Diverticulosis of intestine, part unspecified, without perforation or abscess without bleeding; F41.8 Other specified anxiety disorders; K21.9 Gastro-esophageal reflux disease without esophagitis; F43.10 Post-traumatic stress disorder, unspecified; F90.9 Attention-deficit hyperactivity disorder, unspecified type
CPT/HCPCS: 36415 ×2; 58571; 71046; 80048; 80053; 84702; 85025 ×2; 86850; 86900; 88307; 94640 ×2; G0378 ×2; J0690 ×2; J1100; J1170 ×2; J1200 ×2; J2001; J2175; J2250; J2270 ×2; J2405 ×2; J7030; J7120 ×2

== ENCOUNTER 2018-09-17 20:21 | Emergency (ER) | payer BC ==
[~2018-09-17] VITALS: Ht 160 cm; Wt 93.9 kg
[~2018-09-17 20:21] MED LIST changes: +ESTRADIOL1 MG PO; +Ibuprofen PO; +KLONOPIN0.5 MG PO; +NORCO 7.5-3251 EACH PO; -VASOPRESSIN INJ 20 UNIT/ML VIAL ONE; +ZOFRAN ODT4 MG SL
[2018-09-17 21:00] LABS: BASOPHILS % 0.3 % (0.0-1.0); EOSINOPHILS # (AUTO) 0.2 (0.0-0.4); EOSINOPHILS % 2.3 % (0.0-6.0); HEMATOCRIT 37.9 % (34.2-44.1); HEMOGLOBIN 12.6 g/dL (12.0-16.0); LYMPHOCYTES # (AUTO) 2.8 (1.0-3.2); LYMPHOCYTES % 40.6 % (18.0-39.1); MEAN CORPUSCULAR HEMOGLOBIN 27.8 pg (28-32); MEAN CORPUSCULAR HGB CONC 33.2 g/dL (31-35); MEAN CORPUSCULAR VOLUME 83.5 fL (81-99); MONOCYTES # (AUTO) 0.6 (0.2-0.8); MONOCYTES % 9.3 % (4.4-11.3); NEUTROPHILS # (AUTO) 3.3 (2.1-6.9); NEUTROPHILS % 47.4 % (38.7-80.0); PLATELET COUNT 267 x10e3/uL (140-360); RED BLOOD COUNT 4.54 x10e6/uL (3.6-5.1); RED CELL DISTRIBUTION WIDTH 12.5 % (11.7-14.4)
[2018-09-17 21:09] LABS: INR 0.91; PARTIAL THROMBOPLASTIN TIME 26.2 seconds (23.8-35.5); PROTHROMBIN TIME 13.1 seconds (11.9-14.5)
--- NOTE | 2018-09-17 21:13 | Diagnostic Imaging Report ---
EXAM: CHEST 2 VIEWS, PA and lateral INDICATION: Left sided chest pain COMPARISON: None FINDINGS: LINES/TUBES: None LUNGS: No consolidations or edema. PLEURA: No effusions or pneumothorax. HEART AND MEDIASTINUM: Normal size and contour. BONES AND SOFT TISSUES: No acute findings. Surgical clips upper abdomen seen on lateral view. IMPRESSION: No acute thoracic abnormality. Signed by: Dr. Aleshia Higuera M.D. on 09/17/2018 9:10 PM
[2018-09-17 21:16] LABS: ALANINE AMINOTRANSFERASE 25 IU/L (0-55); ALBUMIN 3.9 g/dL (3.5-5.0); ALBUMIN/GLOBULIN RATIO 1.3 (0.8-2.0); ALKALINE PHOSPHATASE 99 IU/L (40-150); ANION GAP 14.6 mmol/L (8-16); BLOOD UREA NITROGEN 11 mg/dL (7-26); BUN/CREATININE RATIO 14 (6-25); CALCIUM 8.6 mg/dL (8.4-10.2); CARBON DIOXIDE 27 mmol/L (22-29); CHLORIDE 100 mmol/L (98-107); CREATINE KINASE 57 IU/L (29-168); CREATININE, SERUM 0.76 mg/dL (0.57-1.11); EST GLOMERULAR FILTRATION RATE > 60 ML/MIN (60-); GLUCOSE 130 mg/dL (74-118); POTASSIUM 3.6 mmol/L (3.5-5.1); SODIUM 138 mmol/L (136-145)
[2018-09-17] MEDS ORDERED: DONNATAL/LIDOCAINE/MAALOX 30 ML SUSP PO NR (21:45)
[2018-09-17] MEDS ORDERED: BELLADONNA ALK/PHENOBARBITAL 5 ML UDC ONE (21:48)
[2018-09-17] MEDS ORDERED: LIDOCAINE VISC 2% SOLN 15 ML UDC ONE (21:48)
[2018-09-17] MEDS ORDERED: MAGNESIUM/ALUMINUM/SIMETHICONE 30 ML UDC ONE (21:49)
[2018-09-17 21:50] LABS: AMYLASE 60 U/L (25-125); LIPASE 10 U/L (8-78)
[2018-09-17 22:12] LABS: AMPHETAMINES SCREEN,URINE NEGATIVE (NEGATIVE); BENZODIAZEPINES SCREEN,URINE NEGATIVE (NEGATIVE); PHENCYCLIDINE SCREEN,URINE NEGATIVE (NEGATIVE)
[2018-09-17] MEDS ORDERED: LORAZEPAM INJ 2 MG/ML VIAL IV ONE (22:30)
[2018-09-17] MEDS ORDERED: LORAZEPAM INJ 2 MG/ML VIAL ONE (22:34)
[2018-09-18] MEDS ORDERED: ACETAMINOPHEN 325 MG TAB PO ONE (03:15)
== END 2018-09-18 04:01 | disposition home or self-care (01) ==
LOC: ER 20:21
DX: R10.13 Epigastric pain (principal); R10.12 Left upper quadrant pain; R07.89 Other chest pain; F14.180 Cocaine abuse with cocaine-induced anxiety disorder; F12.180 Cannabis abuse with cannabis-induced anxiety disorder
CPT/HCPCS: 36415; 71046; 80053; 80307; 82150; 82550; 82553; 83690; 84484; 85025; 85379; 85610; 85730; 93005 ×2; 96374; 99283; J2060

== ENCOUNTER 2023-03-07 21:12 | Emergency (ER) | payer BC ==
[~2023-03-07] VITALS: Ht 160 cm; Wt 93.9 kg
[2023-03-07] MEDS ORDERED: LORAZEPAM INJ 2 MG/ML VIAL IV ONE (21:15)
[2023-03-07] MEDS ORDERED: LORAZEPAM INJ 2 MG/ML VIAL ONE (21:47)
== END 2023-03-07 23:30 | disposition home or self-care (01) ==
LOC: FSED 21:16
DX: F41.9 Anxiety disorder, unspecified (principal); F41.0 Panic disorder [episodic paroxysmal anxiety]; J45.909 Unspecified asthma, uncomplicated
CPT/HCPCS: 70450; 80053; 85025; 93005; 99284; J2060